=== PATIENT | female | born 1970 | race Caucasian/White ===

== ENCOUNTER 2024-11-29 17:55 | Observation (INO) | payer SELFPAY ==
--- NOTE | ~2024-11-29 | US_ITS ---
EXAMINATION: US venous doppler [facility] DATE: 11/30/2024 09:39 INDICATION: Elevated d-dimer TECHNIQUE: Grayscale ultrasound images without and with compression and Doppler ultrasound images of the bilateral lower extremity veins were obtained. COMPARISON: None. FINDINGS: The visualized portions of right common femoral vein, profunda (deep) femoral vein, femoral vein, pop liteal vein, posterior tibial veins, peroneal veins, gastrocnemius vein and greater saphenous vein ou tflow are patent. The visualized portions of left common femoral vein, profunda femoral vein, femoral vein, popliteal v ein, posterior tibial veins, peroneal veins, gastrocnemius vein and greater saphenous vein outflow ar e patent. IMPRESSION: 1. No deep venous thrombosis in either lower limb. Reviewed, dictated and finalized at location B. ROCK TOWER LOADER
--- NOTE | ~2024-11-29 | CT_ITS ---
EXAMINATION: CTA chest PE protocol DATE: 11/29/2024 21:14 INDICATION: Tachycardia. TECHNIQUE: Computed tomography angiography (CTA) of the chest was performed with 100 mL Omnipaque-350 intravenous contrast timed to evaluate the pulmonary arteries. Coronal maximum intensity projection 3D-reconstructions were created by the technologist. Automated exposure control and iterative reconst ruction technique were employed. The dose-length product was 220.33 mGy-cm. COMPARISON: Chest view 11/29/24 FINDINGS: There are centrilobular nodules and tree-in-bud opacities in the upper lobes and lower lobe s, left worse than right, consistent with pneumonia. No pleural effusion. The heart size is normal. N o pericardial effusion. There is no pulmonary embolus. There is mild left hilar lymphadenopathy, like ly reactive. There is a 10 mm cyst in the liver. There is mild thoracic spondylosis. IMPRESSION: 1. Bilateral pneumonia, left worse than right. 2. No pulmonary embolus. Sensitivity is moderately decreased by motion artifact. Reviewed, dictated and finalized at location A. CUTTER IMPRESSION: 1. Bilateral pneumonia, left worse than right. 2. No pulmonary embolus. Sensitivity is moderately decreased by motion artifact .
--- NOTE | ~2024-11-29 | XR_ITS ---
EXAMINATION: XR chest 1V portable DATE: 11/29/2024 20:22 INDICATION: Shortness of breath. TECHNIQUE: A single frontal view of the chest was obtained. COMPARISON: Chest 2 views 08/17/2018 FINDINGS: There are airspace opacities in left lower lung zone. No pleural effusion or pneumothorax. The heart size is normal. IMPRESSION: 1. Airspace opacities in left lower lung zone, consistent with atelectasis versus pneumonia. Reviewed, dictated and finalized at location A. O TECHNICIAN IMPRESSION: 1. Airspace opacities in left lower lung zone, consistent with atelectasis vers us pneumonia.
[2024-11-29 18:05] VITALS: BP 161/86; PULSE 114; RESP 20; TEMP 37.8; O2SAT 90
[2024-11-29 19:00] VITALS: BP 145/90; PULSE 110; RESP 19; O2SAT 92
--- NOTE | 2024-11-29 19:27 | ECG_ITS ---
Test Date: 2024-11-29 19:36:12 Measurements Intervals [place] Rate: 109 P: 71 IN: 153 QRS: 46 QRSD: 82 T: 20 QT: 305 QTc: 412 Interpretive Statements SINUS TACHYCARDIA POSSIBLE LEFT ATRIAL ENLARGEMENT [-0.1mV P WAVE IN V1/V2] POSSIBLE RIGHT VENTRICULAR CONDUCTION DELAY [RSR (QR) IN V1/V2] SEPTAL MYOCARDIAL INFARCTION , PROBABLY OLD [40+ ms Q WAVE IN V1/V2] MODERATE ST DEPRESSIONS No previous ECG available for comparison Electronically Signed On 11-30-2024 15:53:05 SET UP MECHANIC AUTOMATIC LINE by aMriela Sandoval M.D.
--- NOTE | 2024-11-29 19:30 | ED_ITS ---
HPI - URI/Sore Throat General Chief Complaint: Upper Respiratory Infection <Kiersten Nunes APRN - Last Filed: 11/30/24 21:43> Stated Complaint: sent by for low oxygen <Kiersten Nunes APRN - Last Filed: 11/30/24 21:43> Time Seen by Provider: 11/29/24 18:58 <Kiersten Nunes APRN - Last Filed: 11/30/24 21:43> History of Present Illness HPI Narrative: Patient is a 53-year-old female who presents to the with complaints of 1 week history cough, fatigue, low-grade fever, decreased p.o. intake. She reports she has a functional medicine doctor who has her on supplemental medicines that prevent her from getting sick with very often. Patient reports over the past week she has had a productive cough, increased fatigue, and intermittent fever that she is treated with Tylenol. She endorses a history of asthma, but denies any other pertinent medical history related to this ER visit. Patient denies chest pain, wheezing, abdominal pain, back pain. She reports she has had very mild shortness of breath and her symptoms have worsened over the past couple of days. <Kiersten Nunes APRN - Last Filed: 11/30/24 21:43> Related Data Home Medications: Home Medications ?Medication ?Instructions ?Recorded ?Confirmed ?Last Taken ?Type No Home Medications 11/30/24 11/30/24 Unknown History <Kiersten Nunes APRN - Last Filed: 11/30/24 21:43> Allergies/Adverse Reactions: Allergies Allergy/AdvReac Type Severity Reaction Status Date / Time No Known Allergies Allergy Verified 11/29/24 18:04 <Kiersten Nunes APRN - Last Filed: 11/30/24 21:43> Review of Systems 2 Review of Systems: All systems reviewed & are unremarkable except as noted in HPI and below <Kiersten Nunes APRN - Last Filed: 11/30/24 21:43> [facility] Social History Social History: Social History Smoking status: Never smoker Second hand tobacco smoke exposure: No Alcohol intake: never Substance use: never Substance use type: does not use Do You Feel Safe in your Home?: Yes Lack of Transportation: No Lack of Food: Never True Current Housing: I Have Housing Concerned About Future Housing: No Difficulty Paying Gas/Electric Bills: No Difficulty Paying for Meds: No Currently Unemployed: No Education: Master's Degree or Higher Difficulty w/ Childcare or Family Care: No Spiritual care concerns: No <Kiersten Nunes APRN - Last Filed: 11/30/24 21:43> Exam 2 Narrative: GENERAL: Ill-appearing, well-nourished, non-toxic, in mild distress d/t pain. HEAD: Normocephalic, atraumatic. NECK: Supple. No adenopathy, no masses. RESPIRATORY: Airway patent, respirations mildly laboredc(wearing 2L NC). Clear to auscultation bilaterally, no rales, rhonchi, wheezing. CARDIOVASCULAR: Tachycardia, regular rhythm without murmurs, rubs, or gallops. Peripheral pulses 2+ and equal bilaterally. ABDOMINAL: Soft, nontender, nondistended, no hepatosplenomegaly. Normoactive BS. MUSCULOSKELETAL: Moves all extremities. Strength/ROM intact without gross deformities. SKIN: Warm, dry, normal color. No rashes. NEURO: A&O X3. Speech clear. Cranial nerves II-XII grossly intact. No ataxic movements. PSYCHIATRIC: Appropriate mood, but flat affect. Normal interaction. <Kiersten Nunes APRN - Last Filed: 11/30/24 21:43> Course OTR VAN CDL TRUCK DRIVER/PA Physician Supervision Patient's HPI, Exam, and MDM were reviewed and I agreed with the workup and disposition done in the emergency department by the MLP. I was available for consultation, but was not directly involved with patient's care nor did I evaluate the patient. Patient will be admitted to the hospital for pneumonia started on azithromycin and Rocephin, cultures are pending, requiring oxygen 2 L nasal cannula with improvement her hypoxia. <Torrey Whitmore MD - Last Filed: 11/30/24 08:10> Vital Signs Vital signs: Vital Signs Temperature 37.8 C H 11/29/24 18:05 Pulse Rate 114 H 11/29/24 18:05 Respiratory Rate 20 11/29/24 18:05 Blood Pressure 161/86 H 11/29/24 18:05 Pulse Oximetry 90 11/29/24 18:05 Oxygen Delivery Room Air 11/29/24 18:05 Temperature 36.9 C 11/30/24 14:58 Pulse Rate 79 11/30/24 20:33 Respiratory Rate 18 11/30/24 20:33 Blood Pressure 120/78 11/30/24 14:58 Pulse Oximetry 92 11/30/24 15:00 Oxygen Delivery Nasal Cannula 11/30/24 15:00 Oxygen Flow Rate 2 11/30/24 15:00 <Kiersten Nunes, ROUNDHOUSE FIRER/FIREMAN - Last Filed: 11/30/24 21:43> Vital Signs Temperature 37.8 C H 11/29/24 18:05 Pulse Rate 114 H 11/29/24 18:05 Respiratory Rate 20 11/29/24 18:05 Blood Pressure 161/86 H 11/29/24 18:05 Pulse Oximetry 90 11/29/24 18:05 Oxygen Delivery Room Air 11/29/24 18:05 Temperature 36.9 C 11/30/24 14:58 Pulse Rate 79 11/30/24 20:33 Respiratory Rate 18 11/30/24 20:33 Blood Pressure 120/78 11/30/24 14:58 Pulse Oximetry 92 11/30/24 15:00 Oxygen Delivery Nasal Cannula 11/30/24 15:00 Oxygen Flow Rate 2 11/30/24 15:00 <Torrey Whitmore MD - Last Filed: 11/30/24 08:10> MDM - URI/Sore Throat MDM Narrative Medical decision making narrative: Patient is a 53-year-old female who presents to the with complaints of 1 week history cough, fatigue, low-grade fever, decreased p.o. intake. She reports she has a functional medicine doctor who has her on supplemental medicines that prevent her from getting sick with very often. Patient reports over the past week she has had a productive cough, increased fatigue, and intermittent fever that she is treated with Tylenol. She endorses a history of asthma, but denies any other pertinent medical history related to this ER visit. Patient denies chest pain, wheezing, abdominal pain, back pain. She reports she has had very mild shortness of breath and her symptoms have worsened over the past couple of days. Labs Ordered: CBC, CMP, proBNP, D-dimer, lactic acid, magnesium, TSH, COVID/flu/RSV, blood cultures, troponin Imaging Ordered: Chest x-ray, CTA chest PE scan Medications Ordered: 1 L normal saline IV bolus Results: Diagnosis: Risks: HEART score, PECARN score Consults: Patient Education/Shared MDM: <Kiersten Nunes APRN - Last Filed: 11/30/24 21:43> Lab Data Result diagrams: 11/30/24 06:01 11/30/24 06:01 <Kiersten Nunes APRN - Last Filed: 11/30/24 21:43> Labs: Lab Results 11/29/24 Range/Units 19:43 WBC 19.5 H (4.5-10.0) K/mm3 RBC 4.49 (4.2-5.4) M/mm3 Hgb 13.1 (12.0-15.0) g/dL Hct 39.2 (37.0-47.0) % MCV 87.3 (80-100) fl MCH 29.2 (26-34) pg MCHC 33.4 (32-36) g/dl RDW 12.5 (11.5-14.5) % Plt Count 552 H (150-375) k/mm3 MPV 9.7 (7.4-10.4) fl Immature Gran % (Auto) 1.0 H (0-0.5) % Neut % (Auto) 88.3 H (45.5-73.1) % Lymph % (Auto) 6.3 L (18.3-44.2) % [place] % (Auto) 4.0 (2.6-8.5) % Eos % (Auto) 0.1 (0-4.4) % Baso % (Auto) 0.3 (0.2-1.2) % Lymph # (Auto) 1.22 (0.9-3.2) K/mm3 [place] # (Auto) 0.8 H (0.1-0.6) K/mm3 Eos # (Auto) 0.0 (0-0.3) K/mm3 Baso # (Auto) 0.1 (0.0-0.1) K/mm3 Abs Immat Gran (auto) 0.19 H (0.00-0.031) K/mm3 Absolute Neuts (auto) 17.2 H (1.3-6.7) K/mm3 Absolute Nucleated RBC 0.000 (0.0-0.012) K/mm3 Nucleated RBC % 0.0 (0.0-0.2) % PT 13.8 (11.1-14.7) Seconds INR 1.0 APTT 31.0 (22.3-36.8) Seconds D-Dimer 3.99 H (<0.48) ug/mL Sodium 135 L (137-145) mmol/L Potassium 3.7 (3.4-5.0) mmol/L Chloride 98 (98-107) mmol/L Carbon Dioxide 25 (22-30) mmol/L Anion Gap 12 (4-12) mmol/L BUN 8 (7-17) mg/dL Creatinine 0.66 L (0.7-1.0) mg/dL Estim Creat Clear Calc 70 ml/min Estimated GFR > 60 (59 - ) Glucose 116 H (65-110) mg/dL Lactic Acid 0.9 (0.7-2.0) mmol/L Calcium 8.9 (8.4-10.2) mg/dL Magnesium 2.3 (1.6-2.3) mg/dL Total Bilirubin 0.6 (0.2-1.3) mg/dL AST 28 (14-36) U/L ALT 19 (6-35) U/L Alkaline Phosphatase 116 (38-126) U/L Troponin I < 0.012 (0.000-0.034) ng/mL C-Reactive Protein 11.7 H (<1.0) mg/dL NT-Pro-B Natriuret Pep 39 (19.9-100) pg/mL Total Protein 8.0 (6.3-8.2) g/dL Albumin 4.0 (3.5-5.1) g/dL TSH (Reflex) 2.020 (0.465-4.68) uIU/mL Influenza A (RT-PCR) Negative (Negative) Influenza B (RT-PCR) Negative (Negative) RSV (RT-PCR) Negative (Negative) SARS-CoV-2 RNA (RT-PCR) Negative (Negative) <Kiersten Nunes, ROUNDHOUSE FIRER/FIREMAN - Last Filed: 11/30/24 21:43> Lab Results 11/29/24 Range/Units 19:43 WBC 19.5 H (4.5-10.0) K/mm3 RBC 4.49 (4.2-5.4) M/mm3 Hgb 13.1 (12.0-15.0) g/dL Hct 39.2 (37.0-47.0) % MCV 87.3 (80-100) fl MCH 29.2 (26-34) pg MCHC 33.4 (32-36) g/dl RDW 12.5 (11.5-14.5) % Plt Count 552 H (150-375) k/mm3 MPV 9.7 (7.4-10.4) fl Immature Gran % (Auto) 1.0 H (0-0.5) % Neut % (Auto) 88.3 H (45.5-73.1) % Lymph % (Auto) 6.3 L (18.3-44.2) % [place] % (Auto) 4.0 (2.6-8.5) % Eos % (Auto) 0.1 (0-4.4) % Baso % (Auto) 0.3 (0.2-1.2) % Lymph # (Auto) 1.22 (0.9-3.2) K/mm3 [place] # (Auto) 0.8 H (0.1-0.6) K/mm3 Eos # (Auto) 0.0 (0-0.3) K/mm3 Baso # (Auto) 0.1 (0.0-0.1) K/mm3 Abs Immat Gran (auto) 0.19 H (0.00-0.031) K/mm3 Absolute Neuts (auto) 17.2 H (1.3-6.7) K/mm3 Absolute Nucleated RBC 0.000 (0.0-0.012) K/mm3 Nucleated RBC % 0.0 (0.0-0.2) % PT 13.8 (11.1-14.7) Seconds INR 1.0 APTT 31.0 (22.3-36.8) Seconds D-Dimer 3.99 H (<0.48) ug/mL Sodium 135 L (137-145) mmol/L Potassium 3.7 (3.4-5.0) mmol/L Chloride 98 (98-107) mmol/L Carbon Dioxide 25 (22-30) mmol/L Anion Gap 12 (4-12) mmol/L BUN 8 (7-17) mg/dL Creatinine 0.66 L (0.7-1.0) mg/dL Estim Creat Clear Calc 70 ml/min Estimated GFR > 60 (59 - ) Glucose 116 H (65-110) mg/dL Lactic Acid 0.9 (0.7-2.0) mmol/L Calcium 8.9 (8.4-10.2) mg/dL Magnesium 2.3 (1.6-2.3) mg/dL Total Bilirubin 0.6 (0.2-1.3) mg/dL AST 28 (14-36) U/L ALT 19 (6-35) U/L Alkaline Phosphatase 116 (38-126) U/L Troponin I < 0.012 (0.000-0.034) ng/mL C-Reactive Protein 11.7 H (<1.0) mg/dL NT-Pro-B Natriuret Pep 39 (19.9-100) pg/mL Total Protein 8.0 (6.3-8.2) g/dL Albumin 4.0 (3.5-5.1) g/dL TSH (Reflex) 2.020 (0.465-4.68) uIU/mL Influenza A (RT-PCR) Negative (Negative) Influenza B (RT-PCR) Negative (Negative) RSV (RT-PCR) Negative (Negative) SARS-CoV-2 RNA (RT-PCR) Negative (Negative) <Torrey Whitmore MD - Last Filed: 11/30/24 08:10> Discharge Plan Discharge Clinical Impression: Pneumonia, Acute hypoxic respiratory failure <Kiersten Nunes APRN - Last Filed: 11/30/24 21:43> Patient Disposition: Still a Patient <Kiersten Nunes APRN - Last Filed: 11/30/24 21:43> Condition: Stable <Kiersten Nunes APRN - Last Filed: 11/30/24 21:43>
--- OUTSIDE RECORDS SUMMARY | 2024-11-29 19:52 | XMS_ITS | Clinical Summary ---
Author Organization [facility] Healthcare [place] Care Team Providers Care Dispatch Supervisor Name Role Phone Yoel Grullon BROCK Primary Care Provider Allergies No known active allergies Medications Hospital, Clinic, or Other Facility Administered Medication Ordered Dose Route Frequency Start Date End Date Status ipratropium-albuteroL (DUO-NEB) 0.5-2.5 mg/3 mL nebulizer solution 3 mLIndications:Chronic Obstructive Pulmonary Disease with Bronchospasms 3 mL nebu Once 11/29/2024 5 Ended Active Problems No known active problems Encounters Date Type Department Care Team Description 11/29/2024 4:45 PM CINDER PITMAN Office Visit [facility] at [address] [phone] Carla Bishop NP Acute lower respiratory infection (Primary Dx); Hypoxia; Tachycardia from Last 3 Months Social History Tobacco Use Types Packs/Day Years Used Date Smoking Tobacco: Never Assessed Comments Unknown Sex and Gender Information Value Date Recorded Sex Assigned at Not on file Legal Sex Female 1:02 PM CINDER PITMAN Gender Identity Not on file Sexual Orientation Not on file Obstetrics History Last Filed Vital Signs Vital Sign Reading Time Taken Comments Blood Pressure 112/66 11/29/2024 4:52 PM CINDER PITMAN Pulse 120 11/29/2024 5:50 PM CINDER PITMAN Temperature 37.6 ??C (99.7 ??F) 11/29/2024 4 :52 PM CINDER PITMAN Respiratory Rate 22 11/29/2024 5:50 PM CINDER PITMAN Oxygen Saturation 90% 11/29/2024 5:5 0 PM CINDER PITMAN ranging from 89-91% on 2 L of supplemental oxygen in clinic Inhaled Oxygen Concentration - - Weight - - Height - - Body Mass Index - - Plan of Treatment Health Maintenance Due Date Last Done Comments Breast Cancer Screening-Mammogram 1970 Cervical Cancer Screening 1970 Colon Cancer Screening-Colonoscopy 1970 Depression Screening 1970 Hepatitis C Screening 1970 DTaP/Tdap/Td Vaccine (1 - Tdap) 1981 Hepatitis B Screening 1988 Regular Well Visit/Exam 18-64 1988 Zoster Vaccine (1 of 2) 2020 Influenza Vaccine (#1) 2024 Pneumococcal vaccine <65 Aged Out No longer eligible based on patient's age to complete this topic Care Teams Dispatch Supervisor Relationship Specialty Start Date End Date Yoel Grullon DC [address] [place] [address] PCP - General Chiropractic Medicine 11/29/24
--- OUTSIDE RECORDS SUMMARY | 2024-11-29 19:52 | XMS_ITS | Referral Summary ---
Author Organization [facility] Healthcare [place] Care Team Providers Care Motor Rebuilder Name Role Phone Yoel Grullon DC Primary Care Provider [phone] Encounters Date Type Department Care Team Description 11/29/2024 4:45 PM CASER IN Office Visit [facility] at [address] [phone] Carla Bishop NP Acute lower respiratory infection (Primary Dx); Hypoxia; Tachycardia from Last 3 Months Allergies No known active allergies Medications Hospital, Clinic, or Other Facility Administered Medication Ordered Dose Route Frequency Start Date End Date Status ipratropium-albuteroL (DUO-NEB) 0.5-2.5 mg/3 mL nebulizer solution 3 mLIndications:Chronic Obstructive Pulmonary Disease with Bronchospasms 3 mL nebu Once 11/29/2024 Ended Active Problems No known active problems Social History Tobacco Use Types Packs/Day Years Used Date Smoking Tobacco: Never Assessed Comments Unknown Sex and Gender Information Value Date Recorded Sex Assigned at Not on file Legal Sex Female 1:02 PM CASER IN Gender Identity Not on file Sexual Orientation Not on file Last Filed Vital Signs Vital Sign Reading Time Taken Comments Blood Pressure 112/66 11/29/2024 4:52 PM CASER IN Pulse 120 11/29/2024 5:50 PM CASER IN Temperature 37.6 ??C (99.7 ??F) 11/29/2024 4 :52 PM CASER IN Respiratory Rate 22 11/29/2024 5:50 PM CASER IN Oxygen Saturation 90% 11/29/2024 5:5 0 PM CASER IN ranging from 89-91% on 2 L of supplemental oxygen in clinic Inhaled Oxygen Concentration - - Weight - - Height - - Body Mass Index - - Plan of Treatment Not on file Care Teams Motor Rebuilder Relationship Specialty Start Date End Date Yoel Grullon DC [address] [place] [address] PCP - General Chiropractic Medicine 11/29/24
--- OUTSIDE RECORDS SUMMARY | 2024-11-29 19:52 | XMS_ITS | Encounter Summary ---
Author Organization [facility] Healthcare Address [address] [place] [address] Care Team Providers Care Automotive Buyer Name Role Phone Mitchel Yoel Ariel GUTIÉRREZ Primary Care Provider [phone] Reason for Visit * Reason Comments Cough Started a week ago w ith symptoms. Loss of appetite. Hx of asthma. Fever chest congestion Nothing coming up wh en coughing. Shortness of Breath Encounter Details Date Type Department Care Team (Late st Contact Info) Description 11/29/2024 4:45 PM ENTERPRISE SYSTEMS MANAGER Office Visit [facility] Medical [facility] at [address] [phone] Carla Bishop NP [address] [place] [address] [address] [place] [address] Acute lower respiratory infection (Primary Dx); Hypoxia; Tachycardia Social History Tobacco Use Types Packs/Day Years Used Date Smoking Tobacco: Never Assessed Comments Unknown Sex and Gender Information Value Date Recorded Sex Assigned at Not on file Legal Sex Female 1:02 PM ENTERPRISE SYSTEMS MANAGER Gender Identity Not on file Sexual Orientation Not on file documented as of this encounter Last Filed Vital Signs Vital Sign Reading Time Taken Comments Blood Pressure 112/66 11/29/2024 4:52 PM ENTERPRISE SYSTEMS MANAGER Pulse 120 11/29/2024 5:50 PM ENTERPRISE SYSTEMS MANAGER Temperature 37.6 ??C (99.7 ??F) 11/29/2024 4 :52 PM ENTERPRISE SYSTEMS MANAGER Respiratory Rate 22 11/29/2024 5:50 PM ENTERPRISE SYSTEMS MANAGER Oxygen Saturation 90% 11/29/2024 5:5 0 PM ENTERPRISE SYSTEMS MANAGER ranging from 89-91% on 2 L of supplemental oxygen in clinic Inhaled Oxygen Concentration - - Weight - - Height - - Body Mass Index - - documented in this encounter Patient Instructions * Patient Instructions* Carla Bishop NP - 11/29/2024 4:45 PM ENTERPRISE SYSTEMS MANAGER -Patient to go to ED by private car due to low oxygen saturation in clinic with no response to DuoNeb. Patient declines EMS states she will go by private car. RPRISE SYSTEMS MANAGER RPRISE SYSTEMS MANAGER documented in this encounter Plan of Treatment Scheduled Orders Name Type Priority Associated Diagnoses Orde r Schedule XR Chest PA Lateral 2 Views Imaging Schedule JAMIE, Read JAMIE (Appt Today, Awaiting Results) Acute lower respiratory infection Expected: 11/29/2024, Expires: 11/29/2025 documented as of this encounter Visit Diagnoses Diagnosis Acute lower respiratory infection- Primary Hypoxia Hypoxemia Tachycardia Unspecified tachycardia documented in this encounter Administered Medications Inactive Administered Medications - up to 3 most recent administrations Medication Order MAR Action Action Date Dose Rate Site ipratropium-albuteroL (DUO-NEB) 0.5-2.5 mg/3 mL nebulizer solution 3 mL 3 mL, nebulization, Once, On Thu11/29/24 at 1815, For 1 dose, Indications: Chronic Obstructive Pulmonary Disease with BronchospasmsIndications:Chronic Obstructive Pulmonary Disease with Bronchospasms Given 11/29/2024 5:43 PM ENTERPRISE SYSTEMS MANAGER 3 mL documented in this encounter Orders Medications Ordered That Zeeshan ht Not Have Been Administered Count Last Ordered Date First Ordered Date ipratropium-albuteroL (DUO-N EB) 0.5-2.5 mg/3 mL nebulizer solution 3 mL 1 11/29/2024 documented in this encounter Care Teams Automotive Buyer Relationship Specialty Start Date End Date Yoel Grullon DC [address] [place] [address] PCP - General Chiropractic Medicine 11/29/24 documented as of this encounter
[2024-11-29 20:03] LABS: Basophils Absolute Auto 0.1 K/mm3 (0.0-0.1); Basophils Percent Auto 0.3 % (0.2-1.2); Eosinophils Percent Auto 0.1 % (0-4.4); Hematocrit 39.2 % (37.0-47.0); Hemoglobin 13.1 g/dL (12.0-15.0); Immature Granulocyte Absolute 0.19 K/mm3 (0.00-0.031); Lymphocytes Absolute Auto 1.22 K/mm3 (0.9-3.2); Lymphocytes Percent Auto 6.3 % (18.3-44.2); Mean Corpuscular HGB Conc 33.4 g/dl (32-36); Mean Corpuscular Hemoglobin 29.2 pg (26-34); Mean Corpuscular Volume 87.3 fl (80-100); Mean Platelet Volume 9.7 fl (7.4-10.4); Monocytes Absolute Auto 0.8 K/mm3 (0.1-0.6); Neutrophils Absolute Auto 17.2 K/mm3 (1.3-6.7); Neutrophils Percent Auto 88.3 % (45.5-73.1); Platelet Count Result 552 k/mm3 (150-375); Red Blood Count 4.49 M/mm3 (4.2-5.4); Red Cell Distribution Width 12.5 % (11.5-14.5); White Blood Count 19.5 K/mm3 (4.5-10.0)
[2024-11-29 20:10] LABS: Lactic Acid Reflex 0.9 mmol/L (0.7-2.0); Prothrombin Time 13.8 Seconds (11.1-14.7)
[2024-11-29 20:18] LABS: D Dimer 3.99 ug/mL (<0.48)
[2024-11-29 20:22] LABS: NT Pro B Type Natriuretic Pept 39 pg/mL (19.9-100)
[2024-11-29] MEDS: SODIUM CHLORIDE 0.9% IV 1,000 ML 999 ML IV CONT ×2 (20:22→21:47)
[2024-11-29 20:23] VITALS: O2SAT 90
[2024-11-29 20:30] LABS: Alanine Aminotransferase 19 U/L (6-35); Alkaline Phosphatase 116 U/L (38-126); Anion Gap 12 mmol/L (4-12); Aspartate Amino Transferase 28 U/L (14-36); Bilirubin,Total 0.6 mg/dL (0.2-1.3); Blood Urea Nitrogen 8 mg/dL (7-17); Calcium 8.9 mg/dL (8.4-10.2); Carbon Dioxide 25 mmol/L (22-30); Chloride 98 mmol/L (98-107); Estimated CRCL calculation 70 ml/min; Estimated Glomerular Filt Rate > 60; Glucose 116 mg/dL (65-110); Potassium 3.7 mmol/L (3.4-5.0); Sodium 135 mmol/L (137-145)
[2024-11-29 20:38] LABS: Influenza A QL RT-PCR Negative (Negative); Influenza B QL RT-PCR Negative (Negative); RSV RNA, RT-PCR Negative (Negative); SARS-CoV-2 RNA PCR Negative (Negative)
[2024-11-29 20:41] LABS: Magnesium 2.3 mg/dL (1.6-2.3)
[2024-11-29 20:53] LABS: Troponin I < 0.012 ng/mL (0.000-0.034)
[2024-11-29 22:18] LABS: CRP 11.7 mg/dL (<1.0)
[2024-11-29 22:19] VITALS: BP 142/86; PULSE 103; RESP 16; O2SAT 96
[2024-11-29 22:20] LABS: Add Urine Microscopic? NO; Appearance Urine Clear (Clear); Bilirubin Urine Negative (Negative); Blood Urine Negative (Negative); Color Urine Yellow (Yellow); Glucose Urine UA Negative (Negative); Ketones Urine 2+ mg/dL (Negative); Leukocyte Esterase Ur Negative LEU/UL (Negative); Nitrate Urine Negative (Negative); Protein Urine Negative (Negative); Specific Grav Ur > 1.045 (1.001-1.035); Urobilinogen Urine 0.2 mg/dL (<2.0); pH Urine 6.5 (5.0-9.0)
[2024-11-29] MEDS: AZITHROMYCIN 500 MG/NS 250 ML 500 MG/250 ML BAG 250 MG IVPB (22:36)
[2024-11-29] MEDS: SODIUM CHLORIDE 0.9% IV 1,000 ML 125 ML IV CONT (23:54)
[2024-11-30] VITALS (14 sets, daily range): BP systolic 111–127; BP diastolic 67–81; PULSE 53–100; RESP 16–25; TEMP 36.4–36.9; O2SAT 91–96; BMI 22.4
--- NOTE | 2024-11-30 00:21 | P.HP_ITS ---
H&P: HPI History of Present Illness Date/Time: 11/30/24 00:21 Chief Complaint: Cough Narrative: This is a 53-year-old female or with no significant past medical history presents to the emergency room due to 1 week generalized malaise, body aches and pains, fevers, rigors, chills, cough, poor per orally intake. Patient was found to be hypoxic on room air and placed on 2 L of supplemental oxygen by nasal cannula. Preliminary workup was significant for chest x-ray showed airspace opacities a CT angiogram ruled out of acute pulmonary embolism was significant for bilateral pneumonia, patient was negative for influenza type A influenza type B COVID and RSV. Patient has been admitted for further evaluation management and treatment. EXAMINATION: XR chest 1V portable DATE: 11/29/2024 20:22 INDICATION: Shortness of breath. TECHNIQUE: A single frontal view of the chest was obtained. COMPARISON: Chest 2 views 08/17/2018 FINDINGS: There are airspace opacities in left lower lung zone. No pleural effusion or pneumothorax. The heart size is normal. IMPRESSION: 1. Airspace opacities in left lower lung zone, consistent with atelectasis versus pneumonia. EXAMINATION: CTA chest PE protocol DATE: 11/29/2024 21:14 INDICATION: Tachycardia. TECHNIQUE: Computed tomography angiography (CTA) of the chest was performed with 100 mL Omnipaque-350 intravenous contrast timed to evaluate the pulmonary arteries. Coronal maximum intensity projection 3D-reconstructions were created by the technologist. Automated exposure control and iterative reconstruction technique were employed. The dose-length product was 220.33 mGy-cm. COMPARISON: Chest view 11/29/24 FINDINGS: There are centrilobular nodules and tree-in-bud opacities in the upper lobes and lower lobes, left worse than right, consistent with pneumonia. No pleural effusion. The heart size is normal. No pericardial effusion. There is no pulmonary embolus. There is mild left hilar lymphadenopathy, likely reactive. There is a 10 mm cyst in the liver. There is mild thoracic spondylosis. IMPRESSION: 1. Bilateral pneumonia, left worse than right. 2. No pulmonary embolus. Sensitivity is moderately decreased by motion artifact. Review of Systems Review of Systems: Cough, generalized malaise, body aches and pains, poor per orally intake, poor appetite, chills, fevers, night sweats Meds Home Medications and Allergies Allergies Allergy/AdvReac Type Severity Reaction Status Date / Time No Known Allergies Allergy Verified 11/29/24 18:04 Vital Signs Vital Signs - 24 hr 11/29/24 18:05 11/29/24 19:00 11/29/24 20:23 Temperature 100.0 F H Pulse Rate 114 H 110 H Respiratory Rate 20 19 Blood Pressure 161/86 H 145/90 H Pulse Oximetry 90 92 90 Oxygen Delivery Room Air Nasal Cannula Oxygen Flow Rate 2 11/29/24 22:19 Temperature Pulse Rate 103 H Respiratory Rate 16 Blood Pressure 142/86 H Pulse Oximetry 96 Oxygen Delivery Oxygen Flow Rate Exam Narrative: Patient is laying in a stretcher Const: General: comfortable, no acute distress, well developed, alert, awake, ill appearing acutely and thin Nutritional Appearance: thin Orientation/consciousness: patient oriented x3 HENMT: Head: normal to inspection, normocephalic and atraumatic Ears: hearing grossly normal bilaterally Face/Nose/Sinus: normal facial exam Face and sinus: normal facial exam Eyes: General: appearance normal, both eyes and all related structures Pupils: Equal, round and reactive pupils present EOM: EOMs intact bilaterally Neck: Neck: full ROM, no lymphadenopathy and no JVD Thyroid: thyroid normal Lymphatic: no lymphadenopathy noted Resp: Effort & Inspection: normal respiratory effort and able to speak in co mplete sentences Auscultation: clear to auscultation bilaterally Other: On supplemental oxygen by nasal cannula Cardio: Jugular venous distension: no JVD Rate: regular rate Rhythm: regular rhythm Heart sounds: S1 normal heart sound present and S2 normal heart sound present GI: GI Palp: Yes Soft to palpation and Yes No hepatosplenomegaly present : General: Yes deferred Skin: Rashes: no rashes Wounds: no wounds Neuro: General: patient oriented x3 and CN's II-XI intact bilaterally Cranial nerves: Yes CN's II-XII intact bilaterally and Yes Equal, round and reactive pupils present Cognition (Neuro): normal cognition Speech: normal speech Gait exam (Neuro): Normal gait present Motor exam (neuro): 5/5 motor strength present throughout Extrem: General: normal to inspection, full ROM, no joint enlargement and no pedal edema H&P: Results Labs Labs: Short CBC 11/29/24 Range/Units 19:43 WBC 19.5 H (4.5-10.0) K/mm3 Hgb 13.1 (12.0-15.0) g/dL Hct 39.2 (37.0-47.0) % Plt Count 552 H (150-375) k/mm3 BMP 11/29/24 19:43 Sodium 135 L Potassium 3.7 Chloride 98 Carbon Dioxide 25 BUN 8 Creatinine 0.66 L Glucose 116 H Calcium 8.9 Cardiac Enzymes 11/29/24 Range/Units 19:43 Troponin I < 0.012 (0.000-0.034) ng/mL Liver Function 11/29/24 Range/Units 19:43 Total Bilirubin 0.6 (0.2-1.3) mg/dL AST 28 (14-36) U/L ALT 19 (6-35) U/L Alkaline Phosphatase 116 (38-126) U/L Albumin 4.0 (3.5-5.1) g/dL Urine 11/29/24 Range/Units 22:10 Urine Color Yellow (Yellow) Urine Appearance Clear (Clear) Urine pH 6.5 (5.0-9.0) Ur Specific [place] > 1.045 H (1.001-1.035) Urine Protein Negative (Negative) mg/dL Urine Glucose (UA) Negative (Negative) mg/dL Assessment and Plan Assessment and plan (1) Pneumonia: Code(s): J18.9 - Pneumonia, unspecified organism Status: Acute Assessment and Plan: Admit to [facility] Patient started on Rocephin and Zithromax Await cultures (2) Acute hypoxic respiratory failure: Code(s): J96.01 - Acute respiratory failure with hypoxia Status: Acute Assessment and Plan: On supplemental oxygen by nasal cannula 2 L Hospitalist [facility] Advance Care Plan I have confirmed that the patient's Advanced Care Plan is present, code status is documented, or surrogate decision maker is listed in patient medical record.: Yes Medication Reconciliation I have utilized all available resources to obtain, update and review the patients current medications (includes all prescriptions, OTC, herbals, cannabis, and nutritional supplements).: Yes
[2024-11-30 06:13] LABS: Basophils Absolute Auto 0.1 K/mm3 (0.0-0.1); Basophils Percent Auto 0.3 % (0.2-1.2); Eosinophils Percent Auto 0.2 % (0-4.4); Hematocrit 34.8 % (37.0-47.0); Hemoglobin 11.4 g/dL (12.0-15.0); Immature Granulocyte Absolute 0.15 K/mm3 (0.00-0.031); Immature Granulocyte Percent A 0.9 % (0-0.5); Lymphocytes Absolute Auto 1.56 K/mm3 (0.9-3.2); Mean Corpuscular HGB Conc 32.8 g/dl (32-36); Mean Corpuscular Hemoglobin 29.1 pg (26-34); Mean Corpuscular Volume 88.8 fl (80-100); Mean Platelet Volume 9.5 fl (7.4-10.4); Monocytes Absolute Auto 0.7 K/mm3 (0.1-0.6); Monocytes Percent Auto 4.2 % (2.6-8.5); Neutrophils Absolute Auto 14.9 K/mm3 (1.3-6.7); Neutrophils Percent Auto 85.4 % (45.5-73.1); Platelet Count Result 489 k/mm3 (150-375); Red Blood Count 3.92 M/mm3 (4.2-5.4); Red Cell Distribution Width 12.8 % (11.5-14.5); White Blood Count 17.4 K/mm3 (4.5-10.0)
[2024-11-30 06:18] LABS: Anion Gap 10 mmol/L (4-12); Blood Urea Nitrogen 5 mg/dL (7-17); Calcium 7.9 mg/dL (8.4-10.2); Carbon Dioxide 23 mmol/L (22-30); Chloride 106 mmol/L (98-107); Estimated CRCL calculation 84 ml/min; Estimated Glomerular Filt Rate > 60; Glucose 106 mg/dL (65-110); Magnesium 2.1 mg/dL (1.6-2.3); Phosphorus 3.4 mg/dL (2.5-4.5); Sodium 139 mmol/L (137-145)
[2024-11-30] MEDS: SODIUM CHLORIDE 0.9% IV 1,000 ML 125 ML IV CONT ×2 (06:58→19:40)
[2024-11-30] MEDS: ENOXAPARIN 40 MG/0.4 ML SYRINGE SUB-Q (09:11)
--- NOTE | 2024-11-30 12:45 | P.PNIM_ITS ---
Progress Note: A&P Assessment and Plan (1) Pneumonia: Code(s): J18.9 - Pneumonia, unspecified organism Status: Acute Assessment and Plan: * Admit to med tele * Patient started on Rocephin and Zithromax * Blood cultures pending. * WBC improving 19.5> 17.4 * Duoneb q 6. * NS @ 75 ml/hr (2) Acute hypoxic respiratory failure: Code(s): J96.01 - Acute respiratory failure with hypoxia Status: Acute Assessment and Plan: * On supplemental oxygen by nasal cannula 2 L Subjective Date/time seen: 11/30/24 12:45 Interval history: Patient denies shortness of breath at rest. Patient reports cough and that she may have some secretions that she needs up. Patient is not on inhalers at home. Patient sees Dr. Grullon a functional medicine doctor. Patient denies chest pain, palpitations, headache, dizziness, nausea, or vomiting. Review of Systems Review of Systems: All systems reviewed & are unremarkable except as noted in HPI and below Exam Const: General: comfortable and no acute distress Eyes: Sclera: sclerae normal Resp: Effort & Inspection: normal respiratory effort Other: Slightly diminished with expiratory wheeze left upper lobe. Patient is able to speak in complete sentences. On supplemental oxygne by nasal cannula. Cardio: Rate: tachycardic Rhythm: regular rhythm Other: ST 103. GI: GI Palp: Yes Soft to palpation Auscultation: normal bowel sounds Skin: General skin exam: no rashes or lesions noted Neuro: Speech: normal speech Extrem: General: no pedal edema Psych: Mental Status: mental status grossly normal Affect: normal affect Objective Data Vital Signs Vital Signs: Vital Signs - 24 hr 11/29/24 18:05 11/29/24 19:00 11/29/24 20:23 Temperature 100.0 F H Pulse Rate 114 H 110 H Respiratory Rate 20 19 Blood Pressure 161/86 H 145/90 H Pulse Oximetry 90 92 90 Oxygen Delivery Room Air Nasal Cannula Oxygen Flow Rate 2 11/29/24 22:19 11/30/24 06:21 11/30/24 06:21 Temperature Pulse Rate 103 H 91 Respiratory Rate 16 20 Blood Pressure 142/86 H 118/69 Pulse Oximetry 96 94 94 Oxygen Delivery Nasal Cannula Oxygen Flow Rate 2 11/30/24 07:55 11/30/24 07:55 11/30/24 09:13 Temperature 97.9 F Pulse Rate 93 93 Respiratory Rate 20 25 H Blood Pressure 123/81 112/79 Pulse Oximetry 94 94 94 Oxygen Delivery Nasal Cannula Oxygen Flow Rate 2 11/30/24 10:36 Temperature Pulse Rate 90 Respiratory Rate 20 Blood Pressure 127/72 Pulse Oximetry 94 Oxygen Delivery Oxygen Flow Rate Intake/Output Intake/Output: Intake & Output 11/27/24 11/28/24 11/29/24 11/30/24 23:59 23:59 23:59 23:59 Intake Total 2300 1000 Balance 2300 1000 Meds/Results Medications: Active Medications Generic Name Dose Route Start Last Admin Trade Name Freq PRN Reason Stop Dose Admin Acetaminophen 1,000 mg 11/30/24 05:19 Acetaminophen 500 Mg Tablet PO Q6H PRN Mild Pain (1-3) or Fever Al Hydrox/Mg Hydrox/Simethicone 30 ml 11/30/24 05:19 Mag Hydrox/Al Hydrox/Simeth 30 Ml Udc PO Q6H PRN Indigestion Enoxaparin Sodium 40 mg 11/30/24 09:00 11/30/24 09:11 Enoxaparin 40 Mg/0.4 Ml Syringe SUB-Q 40 mg DAILY TITO Administration Sodium Chloride 1,000 mls @ 125 mls/hr 11/29/24 21:55 11/30/24 06:58 Normal Saline Iv IV CONT 125 mls/hr .Q8H TITO Administration Ceftriaxone Sodium 2 gm in 100 mls @ 200 mls/hr 11/30/24 22:00 Rocephin 2 Gm/Ns 100 Ml IVPB Q24H TITO Azithromycin 500 mg in 250 mls @ 250 mls/hr 11/30/24 23:00 Zithromax IVPB Q24H TITO Ondansetron HCl 4 mg 11/30/24 05:19 Ondansetron Inj 4 Mg/2 Ml Vial IV PUSH Q6H PRN Nausea And Vomiting Polyethylene Glycol 17 gm 11/30/24 05:19 Polyethylene Glycol 3350 17 Gm Powd.Pack PO QAM PRN Constipation Radiology Results: ITS Impressions Chest X-Ray 11/29/24 20:23 IMPRESSION: 1. Airspace opacities in left lower lung zone, consistent with atelectasis versus pneumonia. Chest CTA 11/29/24 21:16 IMPRESSION: 1. Bilateral pneumonia, left worse than right. 2. No pulmonary embolus. Sensitivity is moderately decreased by motion artifact. Venous Doppler Study 11/30/24 09:39 IMPRESSION: 1. No deep venous thrombosis in either lower limb. Labs Labs: Laboratory Results - last 24 hr 11/29/24 11/29/24 11/30/24 19:43 22:10 06:01 WBC 19.5 H 17.4 H RBC 4.49 3.92 L Hgb 13.1 11.4 L Hct 39.2 34.8 L MCV 87.3 88.8 MCH 29.2 29.1 MCHC 33.4 32.8 RDW 12.5 12.8 Plt Count 552 H 489 H MPV 9.7 9.5 Immature Gran % (Auto) 1.0 H 0.9 H Neut % (Auto) 88.3 H 85.4 H Lymph % (Auto) 6.3 L 9.0 L [place] % (Auto) 4.0 4.2 Eos % (Auto) 0.1 0.2 Baso % (Auto) 0.3 0.3 Lymph # (Auto) 1.22 1.56 [place] # (Auto) 0.8 H 0.7 H Eos # (Auto) 0.0 0.0 Baso # (Auto) 0.1 0.1 Abs Immat Gran (auto) 0.19 H 0.15 H Absolute Neuts (auto) 17.2 H 14.9 H Absolute Nucleated RBC 0.000 0.000 Nucleated RBC % 0.0 0.0 PT 13.8 INR 1.0 APTT 31.0 D-Dimer 3.99 H Sodium 135 L 139 Potassium 3.7 4.0 Chloride 98 106 Carbon Dioxide 25 23 Anion Gap 12 10 BUN 8 5 L Creatinine 0.66 L 0.54 L Estim Creat Clear Calc 70 84 Estimated GFR > 60 > 60 Glucose 116 H 106 Lactic Acid 0.9 Calcium 8.9 7.9 L Phosphorus 3.4 Magnesium 2.3 2.1 Total Bilirubin 0.6 AST 28 ALT 19 Alkaline Phosphatase 116 Troponin I < 0.012 C-Reactive Protein 11.7 H NT-Pro-B Natriuret Pep 39 Total Protein 8.0 Albumin 4.0 TSH (Reflex) 2.020 Urine Color Yellow Urine Appearance Clear Urine pH 6.5 Ur Specific [place] > 1.045 H Urine Protein Negative Urine Glucose (UA) Negative Urine Ketones 2+ H Ur Blood (Man) Negative Urine Nitrate Negative Urine Bilirubin Negative Urine Urobilinogen 0.2 Leukocyte Esterase Rfl Negative Influenza A (RT-PCR) Negative Influenza B (RT-PCR) Negative RSV (RT-PCR) Negative SARS-CoV-2 RNA (RT-PCR) Negative Quality VTE Prophylaxis VTE prophylaxis: pharmacologic ordered
[2024-11-30] MEDS: IPRATROPIUM 0.5 MG/ALBUTEROL SULFATE 2.5 MG AMPUL.NEB 3 ML INHALATION ×2 (13:52→20:33)
--- NOTE | 2024-11-30 14:54 | ADMGEN ---
This patient, Munira hSen, was admitted to [facility] Surg Room 306-01. Patient/family oriented to hospital policies and general routines including ID bracelet, bed and alarms, visiting hours, pain management, procedures, bathroom and other care routines, personal items, smoking policy, room service/diet, and visiting hours. Information on how to activate the Rapid Response Team has been discussed. Patient/Family are encouraged to report perceived risks to care and to ask questions if they do not understand what they are told or what they should do.
[2024-11-30] MEDS: guaiFENesin 12 HR 600 MG TABCR PO (21:00)
[2024-11-30] MEDS: cefTRIAXone 2 GM/NS 100 ML 2 GM/100 ML BAG IVPB (21:03)
[2024-11-30] MEDS: AZITHROMYCIN 500 MG/NS 250 ML 500 MG/250 ML BAG 250 MG IVPB (22:10)
[2024-12-01] VITALS (15 sets, daily range): BP systolic 100–139; BP diastolic 59–86; PULSE 66–111; RESP 16–19; TEMP 36.1–37.1; O2SAT 92–96
[2024-12-01] MEDS: IPRATROPIUM 0.5 MG/ALBUTEROL SULFATE 2.5 MG AMPUL.NEB 3 ML INHALATION ×3 (02:06→15:04)
[2024-12-01 07:15] LABS: Basophils Percent Auto 0.4 % (0.2-1.2); Eosinophils Absolute Auto 0.1 K/mm3 (0-0.3); Eosinophils Percent Auto 0.7 % (0-4.4); Hematocrit 30.5 % (37.0-47.0); Immature Granulocyte Absolute 0.12 K/mm3 (0.00-0.031); Immature Granulocyte Percent A 1.1 % (0-0.5); Lymphocytes Percent Auto 15.1 % (18.3-44.2); Mean Corpuscular HGB Conc 32.8 g/dl (32-36); Mean Corpuscular Hemoglobin 30.2 pg (26-34); Mean Corpuscular Volume 92.1 fl (80-100); Mean Platelet Volume 10.2 fl (7.4-10.4); Monocytes Absolute Auto 0.5 K/mm3 (0.1-0.6); Monocytes Percent Auto 4.7 % (2.6-8.5); Neutrophils Absolute Auto 8.8 K/mm3 (1.3-6.7); Platelet Count Result 457 k/mm3 (150-375); Red Blood Count 3.31 M/mm3 (4.2-5.4); Red Cell Distribution Width 12.9 % (11.5-14.5); White Blood Count 11.3 K/mm3 (4.5-10.0)
[2024-12-01 07:38] LABS: Alanine Aminotransferase 14 U/L (6-35); Albumin Level 3.1 g/dL (3.5-5.1); Alkaline Phosphatase 80 U/L (38-126); Anion Gap 10 mmol/L (4-12); Aspartate Amino Transferase 21 U/L (14-36); Bilirubin,Total 0.4 mg/dL (0.2-1.3); Blood Urea Nitrogen 6 mg/dL (7-17); CRP 8.5 mg/dL (<1.0); Calcium 8.4 mg/dL (8.4-10.2); Carbon Dioxide 23 mmol/L (22-30); Chloride 106 mmol/L (98-107); Estimated CRCL calculation 84 ml/min; Estimated Glomerular Filt Rate > 60; Glucose 94 mg/dL (65-110); Magnesium 2.1 mg/dL (1.6-2.3); Sodium 139 mmol/L (137-145)
[2024-12-01] MEDS: guaiFENesin 12 HR 600 MG TABCR PO ×2 (08:24→21:23)
--- NOTE | 2024-12-01 11:09 | P.PNIM_ITS ---
Progress Note: A&P Assessment and Plan (1) Pneumonia: Code(s): J18.9 - Pneumonia, unspecified organism Status: Acute Assessment and Plan: * Patient started on Rocephin and Zithromax * Blood cultures no growth to date. * WBC improving 19.5> 17.4> 11.3. * Duoneb q 6. * Add incentive spirometer. (2) Acute hypoxic respiratory failure: Code(s): J96.01 - Acute respiratory failure with hypoxia Status: Acute Assessment and Plan: * Patient is now on room air with Sa02 94%. Subjective Date/time seen: 12/01/24 11:09 Interval history: Patient reports starting to feel better and up walking some. Patient denies chest pain, palpitations, headache, dizziness, nausea, or vomiting. Patient reports that appetite is improving and nebulizer treatments is helping her breathing. Review of Systems Review of Systems: All systems reviewed & are unremarkable except as noted in HPI and below Exam Const: General: comfortable and no acute distress Resp: Effort & Inspection: normal respiratory effort Auscultation: diminished lung sounds Cardio: Rate: regular rate Rhythm: regular rhythm Other: Telemetry- SR 81 GI: GI Palp: Yes Soft to palpation Auscultation: normal bowel sounds Skin: General skin exam: no rashes or lesions noted Neuro: Speech: normal speech Extrem: General: no pedal edema Psych: Mental Status: mental status grossly normal Affect: normal affect Objective Data Vital Signs Vital Signs: Vital Signs - 24 hr 11/30/24 13:53 11/30/24 13:53 11/30/24 13:59 Temperature Pulse Rate 96 99 Respiratory Rate 22 H 18 Blood Pressure Pulse Oximetry 96 Oxygen Delivery Nasal Cannula Oxygen Flow Rate 2 11/30/24 14:58 11/30/24 15:00 11/30/24 16:00 Temperature 98.5 F Pulse Rate 100 87 Respiratory Rate 16 Blood Pressure 120/78 Pulse Oximetry 92 92 Oxygen Delivery Nasal Cannula Oxygen Flow Rate 2 11/30/24 20:00 11/30/24 20:20 11/30/24 20:33 Temperature Pulse Rate 71 79 Respiratory Rate 18 Blood Pressure Pulse Oximetry 96 Oxygen Delivery Nasal Cannula Oxygen Flow Rate 2 11/30/24 21:30 11/30/24 21:46 12/01/24 00:00 Temperature 97.5 F L Pulse Rate 76 53 L 81 Respiratory Rate 16 Blood Pressure 111/67 Pulse Oximetry 93 91 Oxygen Delivery Room Air Oxygen Flow Rate 12/01/24 02:06 12/01/24 02:13 12/01/24 04:00 Temperature Pulse Rate 76 78 80 Respiratory Rate 18 18 Blood Pressure Pulse Oximetry Oxygen Delivery Oxygen Flow Rate 12/01/24 05:13 12/01/24 07:44 12/01/24 07:44 Temperature Pulse Rate 75 66 66 Respiratory Rate 16 18 18 Blood Pressure 100/59 L Pulse Oximetry 92 94 Oxygen Delivery Room Air Oxygen Flow Rate 12/01/24 07:58 12/01/24 08:25 12/01/24 08:25 Temperature Pulse Rate 88 111 H Respiratory Rate 18 Blood Pressure Pulse Oximetry Oxygen Delivery Room Air Oxygen Flow Rate Intake/Output Intake/Output: Intake & Output 11/28/24 11/29/24 11/30/24 12/01/24 23:59 23:59 23:59 23:59 Intake Total 2300 2125.4 1070 Balance 2300 2125.4 1070 Meds/Results Medications: Active Medications Generic Name Dose Route Start Last Admin Trade Name Freq PRN Reason Stop Dose Admin Acetaminophen 1,000 mg 11/30/24 05:19 Acetaminophen 500 Mg Tablet PO Q6H PRN Mild Pain (1-3) or Fever Al Hydrox/Mg Hydrox/Simethicone 30 ml 11/30/24 05:19 Mag Hydrox/Al Hydrox/Simeth 30 Ml Udc PO Q6H PRN Indigestion Albuterol/Ipratropium 3 ml 11/30/24 14:00 12/01/24 07:41 Ipratropium 0.5 Mg/Albuterol Sulfate 2.5 Mg Ampul.Neb 3 Ml INHALATION 3 ml Q6HRT TITO Administration Enoxaparin Sodium 40 mg 11/30/24 09:00 12/01/24 08:23 Enoxaparin 40 Mg/0.4 Ml Syringe SUB-Q Not Given DAILY TITO Guaifenesin 600 mg 11/30/24 21:00 12/01/24 08:24 Guaifenesin 12 Hr 600 Mg Tabcr PO 12/07/24 20:59 600 mg Q12HR TITO Administration Sodium Chloride 1,000 mls @ 75 mls/hr 11/29/24 21:55 12/01/24 09:41 Normal Saline Iv IV CONT Not Given .[id number] TITO Ceftriaxone Sodium 2 gm in 100 mls @ 200 mls/hr 11/30/24 22:00 11/30/24 21:03 Rocephin 2 Gm/Ns 100 Ml IVPB 200 mls/hr Q24H TITO Administration Azithromycin 500 mg in 250 mls @ 250 mls/hr 11/30/24 23:00 11/30/24 22:10 Zithromax IVPB 250 mls/hr Q24H TITO Administration Ondansetron HCl 4 mg 11/30/24 05:19 Ondansetron Inj 4 Mg/2 Ml Vial IV PUSH Q6H PRN Nausea And Vomiting Polyethylene Glycol 17 gm 11/30/24 05:19 Polyethylene Glycol 3350 17 Gm Powd.Pack PO QAM PRN Constipation Radiology Results: ITS Impressions Chest X-Ray 11/29/24 20:23 IMPRESSION: 1. Airspace opacities in left lower lung zone, consistent with atelectasis versus pneumonia. Chest CTA 11/29/24 21:16 IMPRESSION: 1. Bilateral pneumonia, left worse than right. 2. No pulmonary embolus. Sensitivity is moderately decreased by motion artifact. Venous Doppler Study 11/30/24 09:39 IMPRESSION: 1. No deep venous thrombosis in either lower limb. Labs Labs: Laboratory Results - last 24 hr 12/01/24 06:38 WBC 11.3 H RBC 3.31 L Hgb 10.0 L Hct 30.5 L MCV 92.1 MCH 30.2 MCHC 32.8 RDW 12.9 Plt Count 457 H MPV 10.2 Immature Gran % (Auto) 1.1 H Neut % (Auto) 78.0 H Lymph % (Auto) 15.1 L [place] % (Auto) 4.7 Eos % (Auto) 0.7 Baso % (Auto) 0.4 Lymph # (Auto) 1.70 [place] # (Auto) 0.5 Eos # (Auto) 0.1 Baso # (Auto) 0.0 Abs Immat Gran (auto) 0.12 H Absolute Neuts (auto) 8.8 H Absolute Nucleated RBC 0.000 Nucleated RBC % 0.0 Sodium 139 Potassium 4.0 Chloride 106 Carbon Dioxide 23 Anion Gap 10 BUN 6 L Creatinine 0.54 L Estim Creat Clear Calc 84 Estimated GFR > 60 Glucose 94 Calcium 8.4 Magnesium 2.1 Total Bilirubin 0.4 AST 21 ALT 14 Alkaline Phosphatase 80 C-Reactive Protein 8.5 H Total Protein 6.0 L Albumin 3.1 L Quality VTE Prophylaxis VTE prophylaxis: mechanical ordered
[2024-12-01] MEDS: cefTRIAXone 2 GM/NS 100 ML 2 GM/100 ML BAG IVPB (21:23)
[2024-12-01] MEDS: AZITHROMYCIN 500 MG/NS 250 ML 500 MG/250 ML BAG 250 MG IVPB (22:20)
[2024-12-02] VITALS: PULSE 97
[2024-12-02 04:00] VITALS: PULSE 70
[2024-12-02 04:32] VITALS: BP 111/70; PULSE 71; RESP 16; TEMP 36.9; O2SAT 94
[2024-12-02 06:52] LABS: Hematocrit 32.1 % (37.0-47.0); Hemoglobin 10.5 g/dL (12.0-15.0); Mean Corpuscular HGB Conc 32.7 g/dl (32-36); Mean Corpuscular Hemoglobin 30.2 pg (26-34); Mean Corpuscular Volume 92.2 fl (80-100); Platelet Count Result 523 k/mm3 (150-375); Red Blood Count 3.48 M/mm3 (4.2-5.4); Red Cell Distribution Width 12.8 % (11.5-14.5); White Blood Count 8.4 K/mm3 (4.5-10.0)
[2024-12-02 07:04] LABS: Alanine Aminotransferase 16 U/L (6-35); Albumin Level 3.2 g/dL (3.5-5.1); Alkaline Phosphatase 84 U/L (38-126); Anion Gap 11 mmol/L (4-12); Aspartate Amino Transferase 22 U/L (14-36); Bilirubin,Total 0.4 mg/dL (0.2-1.3); Blood Urea Nitrogen 7 mg/dL (7-17); CRP 5.1 mg/dL (<1.0); Calcium 8.7 mg/dL (8.4-10.2); Carbon Dioxide 23 mmol/L (22-30); Chloride 106 mmol/L (98-107); Estimated CRCL calculation 81 ml/min; Estimated Glomerular Filt Rate > 60; Glucose 88 mg/dL (65-110); Magnesium 2.3 mg/dL (1.6-2.3); Potassium 3.9 mmol/L (3.4-5.0); Sodium 140 mmol/L (137-145)
[2024-12-02 07:58] LABS: Band Neutrophils Percent 0 % (0-6); Basophils Percent Manual 0 % (0-1); Eosinophils Absolute Manual 0.25 K/mm3 (0.02-0.50); Eosinophils Percent Manual 3 % (0-4); Lymphocytes Absolute Manual 1.93 K/mm3 (1.1-4.5); Lymphocytes Percent Manual 23 % (18-44); Monocytes Absolute Manual 0.42 K/mm3 (0.1-0.90); Monocytes Percent Manual 5 % (3-9); Neutrophils Absolute Manual 5.79 K/mm3 (1.7-7.2); Neutrophils Percent Manual 69 % (46-73); Total Cells Counted 100
[2024-12-02 07:59] LABS: Platelet Estimate Adequate (Adequate)
[2024-12-02 08:00] VITALS: PULSE 99
[2024-12-02 08:00] LABS: Hypochromasia 1+; Schistocytes None Seen
[2024-12-02] MEDS: IPRATROPIUM 0.5 MG/ALBUTEROL SULFATE 2.5 MG AMPUL.NEB 3 ML INHALATION (09:00)
[2024-12-02] MEDS: guaiFENesin 12 HR 600 MG TABCR PO (09:32)
[2024-12-02 09:36] VITALS: PULSE 77; RESP 20
[2024-12-02 09:37] VITALS: PULSE 77; RESP 20
--- NOTE | 2024-12-02 10:15 | P.DS_ITS ---
DS: Admitting Diagnosis Discharge Date 12/02/2024 Admitting Diagnosis Sent by urgent care for low oxygen DS: Discharge Diagnosis Discharge Diagnosis (1) Pneumonia: Code(s): J18.9 - Pneumonia, unspecified organism Status: Acute (2) Acute hypoxic respiratory failure: Code(s): J96.01 - Acute respiratory failure with hypoxia Status: Acute DS: Summary Hospital Course Hospital Course: This is a 53-year-old female or with no significant past medical history presents to the emergency room due to 1 week generalized malaise, body aches and pains, fevers, rigors, chills, cough, poor per orally intake. Patient was found to be hypoxic on room air and placed on 2 L of supplemental oxygen by nasal cannula. Preliminary workup was significant for chest x-ray showed airspace o pacities a CT angiogram ruled out of acute pulmonary embolism was significant for bilateral pneumonia, patient was negative for influenza type A influenza type B COVID and RSV. Patient had been admitted for further evaluation management and treatment. EXAMINATION: XR chest 1V portable DATE: 11/29/2024 20:22 INDICATION: Shortness of breath. TECHNIQUE: A single frontal view of the chest was obtained. COMPARISON: Chest 2 views 08/17/2018 FINDINGS: There are airspace opacities in left lower lung zone. No pleural effusion or pneumothorax. The heart size is normal. IMPRESSION: 1. Airspace opacities in left lower lung zone, consistent with atelectasis versus pneumonia. EXAMINATION: CTA chest PE protocol DATE: 11/29/2024 21:14 INDICATION: Tachycardia. TECHNIQUE: Computed tomography angiography (CTA) of the chest was performed with 100 mL Omnipaque-350 intravenous contrast timed to evaluate the pulmonary arteries. Coronal maximum intensity projection 3D-reconstructions were created by the technologist. Automated exposure control and iterative reconstruction technique were employed. The dose-length product was 220.33 mGy-cm. COMPARISON: Chest view 11/29/24 FINDINGS: There are centrilobular nodules and tree-in-bud opacities in the upper lobes and lower lobes, left worse than right, consistent with pneumonia. No pleural effusion. The heart size is normal. No pericardial effusion. There is no pulmonary embolus. There is mild left hilar lymphadenopathy, likely reactive. There is a 10 mm cyst in the liver. There is mild thoracic spondylosis. IMPRESSION: 1. Bilateral pneumonia, left worse than right. 2. No pulmonary embolus. Sensitivity is moderately decreased by motion artifact. Patient treated with IV Rocephin and Zithromax. Patient received Duoneb q6. WBC improved from 19/5>8.4. Patient clinically improved. Sa02 94% RA. Blood cultures no growth. Patient transitioned to oral antibiotics. Status at Discharge Functional status at discharge: independent ambulation Overall status at discharge: patient is progressing back to baseline Time Spent with Patient Time attestation: Total time spent providing and/or coordinating discharge services: Time spent: Greater than 30 minutes Exam Const: General: comfortable and no acute distress Eyes: Sclera: sclerae normal Resp: Effort & Inspection: normal respiratory effort Auscultation: diminished lung sounds Cardio: Rate: tachycardic Other: ST 116 on telemetry GI: GI Palp: Yes Soft to palpation Auscultation: normal bowel sounds Skin: General skin exam: no rashes or lesions noted Neuro: General: gait normal Extrem: General: no pedal edema Psych: Mental Status: mental status grossly normal Affect: normal affect DS: Data Data Completed and Pending Labs on day of discharge: Labs from last 24 hours 12/02/24 06:13 WBC 8.4 RBC 3.48 L Hgb 10.5 L Hct 32.1 L MCV 92.2 MCH 30.2 MCHC 32.7 RDW 12.8 Plt Count 523 H MPV 10.0 Immature Gran % (Auto) Not Reportable Neut % (Auto) Not Reportable Lymph % (Auto) Not Reportable Emery % (Auto) Not Reportable Eos % (Auto) Not Reportable Baso % (Auto) Not Reportable Lymph # (Auto) Not Reportable Emery # (Auto) Not Reportable Eos # (Auto) Not Reportable Baso # (Auto) Not Reportable Abs Immat Gran (auto) Not Reportable Absolute Neuts (auto) Not Reportable Absolute Nucleated RBC Not Reportable Total Counted 100 Neutrophils % (Manual) 69 Band Neutrophils % 0 Lymphocytes % (Manual) 23 Monocytes % (Manual) 5 Eosinophils % (Manual) 3 Basophils % (Manual) 0 Nucleated RBC % Not Reportable Abs Neuts (Manual) 5.79 Abs Lymphs (Manual) 1.93 Abs Monocytes (Manual) 0.42 Absolute Eos (Manual) 0.25 Abs Basophils (Manual) 0.00 Platelet Estimate Adequate Hypochromasia 1+ Schistocytes None seen Sodium 140 Potassium 3.9 Chloride 106 Carbon Dioxide 23 Anion Gap 11 BUN 7 Creatinine 0.56 L Estim Creat Clear Calc 81 Estimated GFR > 60 Glucose 88 Calcium 8.7 Magnesium 2.3 Total Bilirubin 0.4 AST 22 ALT 16 Alkaline Phosphatase 84 C-Reactive Protein 5.1 H Total Protein 7.0 Albumin 3.2 L Preliminary micro results at discharge 11/29/24 20:20 Blood Culture - Preliminary Blood Discharge Plan Discharge Attending physician on discharge: Darius Herrera Discharging Clinician: Oralia Godinez Anticipated Discharge Date/Time: 12/02/24 11:00 Patient Disposition: Home, Self-Care Activity: may shower Diet: as tolerated and regular Discharge Instructions: * Take all doses of antibiotics. * Use incentive spirometer 6 times an hour while awake. * Use Albuterol inhaler as needed and prescribed. * Drink water for hydration. * Report to provider any worsening breathing not improved with inhaler, fever >100.5, or sputum with color. * Good RX for prescription discounts. Thank you for entrusting [facility] with your healthcare! Patient Instructions: Antibiotic Form, How to Use an Incentive Spirometer (DC), How to Use a Metered-Dose Inhaler (DC), Community Acquired Pneumonia (DC) Patient Language: Georgian Stand Alone Forms: General Discharge Information Follow-up/Referrals: Mitchel,Yoel Camp [facility] [Non-Staff] - 1 Week Discharge Medications: New azithromycin [Zithromax] 250 mg Tablet 500 mg PO DAILY@2100 Qty: 4 0RF guaifenesin [Mucus Relief ER] 600 mg Tablet Extended Release 12hr 600 mg PO Q12HR Qty: 14 0RF amoxicillin-pot clavulanate 875-125 mg tablet 1 tablet PO Q12H Qty: 4 0RF albuterol sulfate [Ventolin HFA] 90 mcg/actuation HFA aerosol inhaler 2 puff inhalation QID PRN (Reason: shortness of breath or wheezing) Qty: 8.5 0RF Date of admission: 11/29/24 21:53 Primary Care Provider: UNKNOWN,DOCTOR Admitting Provider: Kandy Wyman V. Attending physician on admission: Kandy Wyman V. Condition: Stable Hospitalist MIPS Heart Failure (Exclusion) Patient has history of Heart Transplant or Left Ventricular Assistive Device?: No IF YES, STOP HERE Heart Failure (Qualifier) Patient has current or prior documentation of LVEF less than or equal to 40%, or mod/servere depressed LVSF?: No IF NO, STOP HERE
== END 2024-12-02 11:10 | disposition home or self-care (01) ==
LOC: ANHED 19:50 → ANH3MEDSUR 11-30 05:12
PROVIDERS: Nurse Practitioner Family; Admitting Provider Internal Medicine; Emergency Provider Registered Nurse; Visit Provider Internal Medicine
DX: J18.9 Pneumonia, unspecified organism (principal); J96.01 Acute respiratory failure with hypoxia; R79.1 Abnormal coagulation profile; Z20.822 Contact with and (suspected) exposure to COVID-19
CPT/HCPCS: 36415; 71045; 71275; 80048; 80053; 81003; 83605; 83735; 83880; 84100; 84443; 84484; 85025; 85380; 85610; 85730; 86140; 87040; 87637; 93005; 93970; 94640; 96361; 96365; 96367; 96374; 96375; 99285; A9270; G0378; J0456; J0696; J1650; J7030; Q9967